=== PATIENT | female | born 1975 | race Caucasian/White ===

== ENCOUNTER 2024-09-15 02:29 | Emergency (ER) | payer BC ==
[~2024-09-15] VITALS: Ht 157.5 cm; Wt 71.2 kg
[2024-09-15 02:42] VITALS: O2SAT 99
[2024-09-15] MEDS ORDERED: TOPUD MT (04:54)
[2024-09-15] MEDS ORDERED: TUSSL MT (04:54)
[2024-09-15] MEDS ORDERED: IBUP-2028 MT (04:54)
[2024-09-15] MEDS: KETOROLAC 30MG/ML VIAL IM ONE (05:00)
[2024-09-15 05:12] VITALS: BP 112/62; PULSE 89; RESP 18; TEMP 37.66968; O2SAT 99
== END 2024-09-15 05:13 | disposition home or self-care (01) ==
LOC: ER 02:29
DX: U07.1 COVID-19 (principal)
CPT/HCPCS: 87426; 87804; 96372; 99283

== ENCOUNTER 2025-01-02 20:33 | Emergency (ER) | payer BC ==
[~2025-01-02] VITALS: Ht 160 cm; Wt 75.0 kg
[~2025-01-02 20:33] MED LIST: IBUP-2028 MT; TOPUD MT; TUSSL MT
[2025-01-02 20:35] VITALS: O2SAT 99
[2025-01-02 20:40] VITALS: BP 113/51; PULSE 91; RESP 18; TEMP 36.7; O2SAT 99
[2025-01-02] MEDS: ONDANSETRON HCL 4MG/2ML INJ IM ONE (21:21)
[2025-01-02] MEDS: ACETAMINOPHEN 325MG TABLET PO ONE (21:21)
[2025-01-02] MEDS: FAMOTIDINE 20MG TABLET PO ONE (21:21)
[2025-01-02] MEDS: MAGNESIUM/ALUMINUM HYDROXIDE/SIMETHICONE 30ML UDC PO ONE (21:21)
[2025-01-02 21:22] LABS: BASOPHILS % 0.5 % (0.0-2.0); CARBON DIOXIDE 22 mEq/L (21-32); CHLORIDE 107 mEq/L (98-107); DIFFERENTIAL COMMENT 0; EOSINOPHILS % 2.4 % (0.0-5.0); HEMATOCRIT. 36.7 % (36.0-48.0); HEMOGLOBIN. 11.4 g/dL (12.0-16.0); MEAN CORPUSCULAR HEMOGLOBIN 21.8 pg (28.0-32.0); MEAN CORPUSCULAR HGB CONC 31.2 g/dL (31.0-37.0); MEAN CORPUSCULAR VOLUME 70.1 fL (81.0-99.0); MEAN PLATELET VOLUME 8.6 fl (7.4-10.4); MONOCYTES % 11.2 % (2.0-8.0); NEUTROPHILS % 59.9 % (40.0-76.0); PLATELET 297 x1000/uL (130-400); POTASSIUM 3.4 mEq/L (3.5-5.1); RED BLOOD CELL COUNT 5.23 mill/uL (4.2-5.4); SODIUM 141 mEq/L (136-145); WHITE BLOOD COUNT 7.3 x1000/uL (4.5-11.0)
[2025-01-02 21:23] LABS: CALCIUM 9.4 mg/dL (8.7-10.4)
[2025-01-02 21:27] LABS: CREATININE 0.8 mg/dL (0.6-1.0)
[2025-01-02 21:28] LABS: GLUCOSE 105 mg/dL (70-105); UREA NITROGEN BLOOD 7 mg/dL (9-23)
[2025-01-02 21:29] LABS: ALANINE AMINOTRANSFERASE 10 IU/L (10-49); ALBUMIN 4.3 g/dL (3.2-4.8); ASPARTATE AMINOTRANSFERASE 16 IU/L (<34)
[2025-01-02 21:30] LABS: BILIRUBIN DIRECT 0.1 mg/dL (<=3.0); BILIRUBIN TOTAL 0.5 mg/dL (0.1-1.0); PROTEIN TOTAL 7.3 g/dL (6.0-8.3)
[2025-01-02] MEDS ORDERED: ONDA4TAB50 MT (22:18)
== END 2025-01-02 22:42 | disposition home or self-care (01) ==
LOC: ER 20:33
DX: R11.2 Nausea with vomiting, unspecified (principal); R10.13 Epigastric pain; R19.7 Diarrhea, unspecified
CPT/HCPCS: 99284; 80076; 80048; 83690; 85025; 36415; 96372; J2405